=== PATIENT | female | born 1955 | race Hispanic/Latino ===

== ENCOUNTER 2017-07-05 14:56 | Emergency (ER) | payer SELFPAY ==
[~2017-07-05] VITALS: Ht 152.4 cm; Wt 61.2 kg
[2017-07-05] MEDS ORDERED: ALLEGRA-D 12 H1 EACH PO (15:29)
[2017-07-05] MEDS ORDERED: ZITHROMAX250 MG PO (15:29)
== END 2017-07-05 15:32 | disposition home or self-care (01) ==
LOC: ED 14:56
DX: H83.09 Labyrinthitis, unspecified ear (principal); J06.9 Acute upper respiratory infection, unspecified; F17.200 Nicotine dependence, unspecified, uncomplicated; Z88.0 Allergy status to penicillin
CPT/HCPCS: 99283